=== PATIENT | female | born 1950 | race Caucasian/White ===

== ENCOUNTER → 2016-07-08 | Outpatient (CLI) | payer MEDICARE ==
[~2016-07-08] MED LIST: ANAS1TAB PO; CHOL20003 PO; CITA40TA5 PO; FISH OIL OMEGA1 EACH PO; GRAP50CA3 PO; HYDR-3138 PO; OMNIPAQUE 350 MG/ML, 100ML BOTTLE ONE; SUMA50TA4 PO
== END | disposition home or self-care (01) ==
LOC: CFH 10:48
PROVIDERS: ATTEND Internal Medicine
DX: K57.30 Diverticulosis of large intestine without perforation or abscess without bleeding (principal); K76.89 Other specified diseases of liver
CPT/HCPCS: 74178; Q9967

== ENCOUNTER 2016-08-16 00:16 | Inpatient (IN) | payer MEDICARE ==
[2016-08-16] VITALS (8 sets, daily range): BP systolic 91–113; BP diastolic 42–68
[~2016-08-16] VITALS: Ht 167.6 cm; Wt 93.1 kg
[~2016-08-16 00:16] MED LIST changes: -OMNIPAQUE 350 MG/ML, 100ML BOTTLE ONE
[2016-08-16] MEDS ORDERED: SODIUM CHLORIDE FLUSH 10ML SYR IVF ONE (01:00)
[2016-08-16] MEDS ORDERED: METO25TA91 PO (01:14)
[2016-08-16 01:32] LABS: ASPARTATE AMINO TRANSFERASE 8 U/L (15-37); BLOOD UREA NITROGEN 12 mg/dL (7-18)
[2016-08-16] MEDS ORDERED: D5%-0.45NACL+KCL 20MEQ 1,000 ML IV SCH ×2 (01:52→09:00)
[2016-08-16] MEDS: PIPERACILLIN/TAZO/PMX 4.5GM 100 ML IV SCH ×2 (04:32→11:19)
[2016-08-16] MEDS: HYDROmorphone 1 MG/ML, 1ML IVPush PRN ×3 (04:32→09:27)
[2016-08-16] MEDS: METOPROLOL SUCCINATE 25 MG TAB.ER.24H PO SCH (09:00)
[2016-08-16] MEDS: CITALOPRAM 20 MG TABLET PO SCH (09:19)
[2016-08-16] MEDS: FAMOTIDINE 20 MG/2 ML IVPush SCH ×2 (09:21→20:17)
[2016-08-16] MEDS: ANASTROZOLE 1 MG TABLET PO SCH (09:29)
[2016-08-16] MEDS ORDERED: ACETAMINOPHEN 325 MG TABLET PO PRN (12:45)
[2016-08-16] MEDS: IBUPROFEN 200 MG TABLET PO PRN (13:26)
[2016-08-16] MEDS: ONDANSETRON 2MG/ML, 2ML IVPush PRN (13:27)
[2016-08-16] MEDS ORDERED: PIPERACILLIN/TAZO 4.5 GM in SODIUM CHLORIDE 0.9% 100 ML IV SCH (16:30)
[2016-08-16] MEDS: PIPERACILLIN/TAZO 4.5 GM in SODIUM CHLORIDE 0.9% 100 ML IV SCH (19:15)
[2016-08-16] MEDS: BUTALB/APAP/CAFFEINE 50MG/325MG/40MG PO PRN (19:16)
[2016-08-16] MEDS: D5%-0.45NACL+KCL 20MEQ 1,000 ML IV SCH (19:20)
[2016-08-16] MEDS ORDERED: LORazepam 1MG TABLET ONE (20:21)
[2016-08-16] MEDS: LORazepam 0.5MG TABLET PO PRN (20:21)
[2016-08-17] MEDS: PIPERACILLIN/TAZO 4.5 GM in SODIUM CHLORIDE 0.9% 100 ML IV SCH ×4 (01:57→20:08)
[2016-08-17] MEDS: D5%-0.45NACL+KCL 20MEQ 1,000 ML IV SCH ×4 (01:57→22:03)
[2016-08-17 03:06] VITALS: BP 93/62
[2016-08-17] MEDS: BUTALB/APAP/CAFFEINE 50MG/325MG/40MG PO PRN ×4 (04:07→22:03)
[2016-08-17 06:40] VITALS: BP 103/59
[2016-08-17] MEDS: FAMOTIDINE 20 MG/2 ML IVPush SCH ×2 (08:30→20:09)
[2016-08-17] MEDS: CITALOPRAM 20 MG TABLET PO SCH (08:30)
[2016-08-17] MEDS: METOPROLOL SUCCINATE 25 MG TAB.ER.24H PO SCH (08:31)
[2016-08-17] MEDS: ANASTROZOLE 1 MG TABLET PO SCH (08:38)
[2016-08-17 12:40] VITALS: BP 106/60
[2016-08-17] MEDS ORDERED: LORazepam 1MG TABLET ONE (20:06)
[2016-08-17] MEDS: LORazepam 0.5MG TABLET PO PRN (20:09)
[2016-08-17 20:23] VITALS: BP 133/84
[2016-08-17] MEDS: HYDROmorphone 1 MG/ML, 1ML IVPush PRN (22:37)
[2016-08-18] MEDS: PIPERACILLIN/TAZO 4.5 GM in SODIUM CHLORIDE 0.9% 100 ML IV SCH ×4 (02:00→20:01)
[2016-08-18 04:22] VITALS: BP 111/74
[2016-08-18] MEDS: D5%-0.45NACL+KCL 20MEQ 1,000 ML IV SCH ×3 (05:09→22:06)
[2016-08-18 07:00] VITALS: BP 130/80
[2016-08-18] MEDS: CITALOPRAM 20 MG TABLET PO SCH (08:43)
[2016-08-18] MEDS: ENOXAPARIN 30 MG/0.3 ML SQ SCH ×2 (08:45→20:01)
[2016-08-18] MEDS: FAMOTIDINE 20 MG/2 ML IVPush SCH ×2 (08:45→20:02)
[2016-08-18] MEDS: METOPROLOL SUCCINATE 25 MG TAB.ER.24H PO SCH (08:46)
[2016-08-18] MEDS: ANASTROZOLE 1 MG TABLET PO SCH (11:03)
[2016-08-18 14:47] VITALS: BP 144/86
[2016-08-18 19:29] VITALS: BP 146/84
[2016-08-18] MEDS ORDERED: LORazepam 1MG TABLET ONE (22:05)
[2016-08-18] MEDS: LORazepam 0.5MG TABLET PO PRN (22:06)
[2016-08-19] MEDS ORDERED: ZOLPIDEM 5MG TABLET PO ONE
[2016-08-19 01:58] VITALS: BP 134/79
[2016-08-19] MEDS: PIPERACILLIN/TAZO 4.5 GM in SODIUM CHLORIDE 0.9% 100 ML IV SCH ×4 (02:15→21:28)
[2016-08-19] MEDS: BUTALB/APAP/CAFFEINE 50MG/325MG/40MG PO PRN ×2 (06:25→21:30)
[2016-08-19 06:59] VITALS: BP 129/84
[2016-08-19] MEDS: CITALOPRAM 20 MG TABLET PO SCH (08:29)
[2016-08-19] MEDS: FAMOTIDINE 20 MG/2 ML IVPush SCH ×2 (08:30→21:29)
[2016-08-19] MEDS: METOPROLOL SUCCINATE 25 MG TAB.ER.24H PO SCH (08:31)
[2016-08-19] MEDS: ANASTROZOLE 1 MG TABLET PO SCH (08:38)
[2016-08-19] MEDS: D5%-0.45NACL+KCL 20MEQ 1,000 ML IV SCH (10:42)
[2016-08-19] MEDS: ENOXAPARIN 30 MG/0.3 ML SQ SCH ×2 (10:42→21:29)
[2016-08-19] MEDS ORDERED: OMNIPAQUE 350 MG/ML, 100ML BOTTLE ONE (10:51)
[2016-08-19 13:05] VITALS: BP 146/85
[2016-08-19] MEDS ORDERED: D5%-0.45NACL+KCL 20MEQ 1,000 ML IV SCH (19:00)
[2016-08-19 19:55] VITALS: BP 141/85
[2016-08-19] MEDS: LORazepam 0.5MG TABLET PO PRN (21:29)
[2016-08-20 02:16] VITALS: BP 140/89
[2016-08-20] MEDS: PIPERACILLIN/TAZO 4.5 GM in SODIUM CHLORIDE 0.9% 100 ML IV SCH ×4 (02:16→23:54)
[2016-08-20] MEDS: BUTALB/APAP/CAFFEINE 50MG/325MG/40MG PO PRN ×2 (02:34→16:42)
[2016-08-20] MEDS: HYDROmorphone 1 MG/ML, 1ML IVPush PRN ×2 (02:50→04:28)
[2016-08-20 07:02] VITALS: BP 140/98
[2016-08-20 08:04] VITALS: BP 146/94
[2016-08-20] MEDS: CITALOPRAM 20 MG TABLET PO SCH (09:06)
[2016-08-20] MEDS: METOPROLOL SUCCINATE 25 MG TAB.ER.24H PO SCH (09:06)
[2016-08-20] MEDS: FAMOTIDINE 20 MG/2 ML IVPush SCH ×2 (09:07→23:54)
[2016-08-20] MEDS: ENOXAPARIN 30 MG/0.3 ML SQ SCH ×2 (09:08→23:14)
[2016-08-20] MEDS: ANASTROZOLE 1 MG TABLET PO SCH (09:18)
[2016-08-20 14:18] VITALS: BP 155/101
[2016-08-20] MEDS: D5%-0.45NACL+KCL 20MEQ 1,000 ML IV SCH (19:00)
[2016-08-20 19:38] VITALS: BP 139/92
[2016-08-21] MEDS: HYDROmorphone 1 MG/ML, 1ML IVPush PRN (00:08)
[2016-08-21 02:16] VITALS: BP 111/75
[2016-08-21] MEDS: PIPERACILLIN/TAZO 4.5 GM in SODIUM CHLORIDE 0.9% 100 ML IV SCH ×4 (03:06→22:04)
[2016-08-21] MEDS: ONDANSETRON 2MG/ML, 2ML IVPush PRN (06:21)
[2016-08-21] MEDS: IBUPROFEN 200 MG TABLET PO PRN (07:36)
[2016-08-21 07:42] VITALS: BP 131/81
[2016-08-21] MEDS: ENOXAPARIN 30 MG/0.3 ML SQ SCH ×2 (09:16→22:05)
[2016-08-21] MEDS: CITALOPRAM 20 MG TABLET PO SCH (09:16)
[2016-08-21] MEDS: FAMOTIDINE 20 MG/2 ML IVPush SCH ×2 (09:16→22:04)
[2016-08-21] MEDS: METOPROLOL SUCCINATE 25 MG TAB.ER.24H PO SCH (09:16)
[2016-08-21] MEDS: ANASTROZOLE 1 MG TABLET PO SCH (09:22)
[2016-08-21] MEDS: D5%-0.45NACL+KCL 20MEQ 1,000 ML IV SCH (10:23)
[2016-08-21] MEDS: BUTALB/APAP/CAFFEINE 50MG/325MG/40MG PO PRN (12:14)
[2016-08-21 14:02] VITALS: BP 129/80
[2016-08-21 18:43] VITALS: BP 119/80
[2016-08-21] MEDS: LORazepam 0.5MG TABLET PO PRN (22:05)
[2016-08-22 00:48] VITALS: BP 132/82
[2016-08-22] MEDS: PIPERACILLIN/TAZO 4.5 GM in SODIUM CHLORIDE 0.9% 100 ML IV SCH ×3 (03:23→15:13)
[2016-08-22 06:44] VITALS: BP 128/84
[2016-08-22] MEDS: ANASTROZOLE 1 MG TABLET PO SCH (08:32)
[2016-08-22] MEDS: FAMOTIDINE 20 MG/2 ML IVPush SCH ×2 (08:32→21:10)
[2016-08-22] MEDS: CITALOPRAM 20 MG TABLET PO SCH (08:33)
[2016-08-22] MEDS: ENOXAPARIN 30 MG/0.3 ML SQ SCH ×2 (08:33→21:10)
[2016-08-22] MEDS: METOPROLOL SUCCINATE 25 MG TAB.ER.24H PO SCH (09:00)
[2016-08-22 13:35] VITALS: BP 149/85
[2016-08-22 18:56] VITALS: BP 151/85
[2016-08-22] MEDS ORDERED: LORazepam 1MG TABLET ONE (21:05)
[2016-08-22] MEDS: PIPERACILLIN/TAZO/PMX 4.5GM 100 ML IV SCH (21:10)
[2016-08-22] MEDS: LORazepam 0.5MG TABLET PO PRN (21:11)
[2016-08-23 00:27] VITALS: BP 138/88
[2016-08-23] MEDS: PIPERACILLIN/TAZO/PMX 4.5GM 100 ML IV SCH ×4 (02:51→21:45)
[2016-08-23 06:45] VITALS: BP 147/91
[2016-08-23] MEDS: CITALOPRAM 20 MG TABLET PO SCH (09:19)
[2016-08-23] MEDS: FAMOTIDINE 20 MG/2 ML IVPush SCH ×2 (09:19→21:44)
[2016-08-23] MEDS: ENOXAPARIN 30 MG/0.3 ML SQ SCH ×2 (09:19→21:45)
[2016-08-23] MEDS: METOPROLOL SUCCINATE 25 MG TAB.ER.24H PO SCH (09:19)
[2016-08-23] MEDS: ANASTROZOLE 1 MG TABLET PO SCH (09:29)
[2016-08-23 14:38] VITALS: BP 142/90
[2016-08-23 19:56] VITALS: BP 142/97
[2016-08-23] MEDS ORDERED: LORazepam 1MG TABLET ONE (21:58)
[2016-08-23] MEDS: LORazepam 0.5MG TABLET PO PRN (22:00)
[2016-08-24 03:51] VITALS: BP 126/67
[2016-08-24] MEDS: PIPERACILLIN/TAZO/PMX 4.5GM 100 ML IV SCH ×2 (04:11→09:47)
[2016-08-24 06:58] VITALS: BP 139/92
[2016-08-24] MEDS: FAMOTIDINE 20 MG/2 ML IVPush SCH (08:12)
[2016-08-24] MEDS: ENOXAPARIN 30 MG/0.3 ML SQ SCH (08:12)
[2016-08-24] MEDS: METOPROLOL SUCCINATE 25 MG TAB.ER.24H PO SCH (08:13)
[2016-08-24] MEDS: CITALOPRAM 20 MG TABLET PO SCH (08:13)
[2016-08-24] MEDS: ANASTROZOLE 1 MG TABLET PO SCH (08:15)
[2016-08-24] MEDS ORDERED: CIPR500T87 PO (10:29)
[2016-08-24] MEDS ORDERED: METR500T PO (10:31)
[2016-08-24 11:30] VITALS: BP 139/92
== END 2016-08-24 11:45 | disposition home or self-care (01) | DRG 392 ==
LOC: ED 02:25 → EDIP 02:35 → 4NOR 03:15
PROVIDERS: ADMIT Internal Medicine; ATTEND Internal Medicine
DX: K57.20 Diverticulitis of large intestine with perforation and abscess without bleeding (principal); F32.9 Major depressive disorder, single episode, unspecified; G43.909 Migraine, unspecified, not intractable, without status migrainosus; E66.3 Overweight; F12.90 Cannabis use, unspecified, uncomplicated; G47.00 Insomnia, unspecified; Z87.891 Personal history of nicotine dependence; Z85.3 Personal history of malignant neoplasm of breast; Z95.0 Presence of cardiac pacemaker; Z92.3 Personal history of irradiation; Z92.21 Personal history of antineoplastic chemotherapy; Z68.33 Body mass index [BMI] 33.0-33.9, adult; I49.5 Sick sinus syndrome
CPT/HCPCS: 36415; 74177; 80053; 85025; 85610; 85730; 87324; 93005; J1170; J1650; J2405; J2543; Q9967; J3480; S0028

== ENCOUNTER → 2016-09-11 | Outpatient (CLI) | payer MEDICARE ==
[~2016-09-11] MED LIST changes: +CHOL2000 PO; -CHOL20003 PO; +CIPR500T87 PO; +METO25TA91 PO; +METR500T PO; +OMNIPAQUE 350 MG/ML, 100ML BOTTLE ONE
== END | disposition home or self-care (01) ==
LOC: CFH 12:46
PROVIDERS: ATTEND Surgery
DX: K57.20 Diverticulitis of large intestine with perforation and abscess without bleeding (principal); L02.211 Cutaneous abscess of abdominal wall; K57.30 Diverticulosis of large intestine without perforation or abscess without bleeding
CPT/HCPCS: 74177; Q9967

== ENCOUNTER → 2017-04-06 | Outpatient (CLI) | payer MEDICARE ==
[~2017-04-06] MED LIST changes: -HYDR-3138 PO; +HYDR-3237 PO; -OMNIPAQUE 350 MG/ML, 100ML BOTTLE ONE
== END | disposition home or self-care (01) ==
LOC: CFH 13:03
PROVIDERS: ATTEND Internal Medicine
DX: Z13.820 Encounter for screening for osteoporosis (principal); N95.1 Menopausal and female climacteric states; M89.9 Disorder of bone, unspecified
CPT/HCPCS: 77080

== ENCOUNTER → 2017-06-07 | Outpatient (CLI) | payer MEDICARE | END | disposition home or self-care (01) | LOC: CFH 08:32 | PROVIDERS: ATTEND Ophthalmology | DX: Z12.2 Encounter for screening for malignant neoplasm of respiratory organs (principal); I10 Essential (primary) hypertension; E78.5 Hyperlipidemia, unspecified; G45.3 Amaurosis fugax; Z87.891 Personal history of nicotine dependence; Z95.0 Presence of cardiac pacemaker | CPT/HCPCS: 93306; 93880; G0297 ==

== ENCOUNTER → 2017-06-15 | Outpatient (CLI) | payer MEDICARE ==
[~2017-06-15] MED LIST changes: +OMNIPAQUE 350 MG/ML, 100ML BOTTLE ONE
== END | disposition home or self-care (01) ==
LOC: CFH 12:03
PROVIDERS: ATTEND Internal Medicine Cardiovascular Disease
DX: G45.3 Amaurosis fugax (principal); G45.9 Transient cerebral ischemic attack, unspecified; J34.3 Hypertrophy of nasal turbinates
CPT/HCPCS: 70470; 70496; 70498; Q9967

== ENCOUNTER → 2018-06-01 | Outpatient (CLI) | payer MEDICARE ==
[~2018-06-01] MED LIST changes: -OMNIPAQUE 350 MG/ML, 100ML BOTTLE ONE
== END | disposition home or self-care (01) ==
LOC: CFH 09:26
DX: Z12.2 Encounter for screening for malignant neoplasm of respiratory organs (principal); Z87.891 Personal history of nicotine dependence
CPT/HCPCS: G0297

== ENCOUNTER → 2020-07-16 | Outpatient (CLI) | payer MEDICARE | END | disposition home or self-care (01) | LOC: CFH 07:49 | PROVIDERS: ATTEND Internal Medicine Cardiovascular Disease | DX: I35.1 Nonrheumatic aortic (valve) insufficiency (principal); I71.9 Aortic aneurysm of unspecified site, without rupture | CPT/HCPCS: 93306 ==